=== PATIENT | male | born 2000 | race Caucasian/White ===

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

== ENCOUNTER 2019-01-24 09:00 | Outpatient (RCR) | payer BC ==
[2019-01-02 15:59] LABS: BASO # 0.1 (0.0-0.2); BASO % 0.8 % (0.0-2.0); EOS # 0.5 (0.0-0.7); EOS % 7.8 % (0-4.0); GRAN # 3.7 (1.4-6.5); HEMATOCRIT 47.3 % (36.0-47.0); HEMOGLOBIN 16.4 g/dl (12.5-16.1); LYMPH # 1.3 (1.2-3.4); LYMPH % 20.8 % (20.0-51.0); MEAN CELL VOLUME 89 fl (80.0-95.0); MEAN CORPUSCULAR HEMOGLOBIN 31 pg (26.0-32.0); MEAN CORPUSCULAR HGB CONC 35 g/dl (33.0-37.0); MONO # 0.6 (0.1-0.6); MONO % 10.3 % (1.7-9.3); PLATELET COUNT 185 K/mm3 (130-400); RED BLOOD COUNT 5.31 M/mm3 (4.20-5.60); REDCELL DISTRIBUTION WIDTH-CV 11.9 % (11.5-14.5)
[2019-01-02 16:17] VITALS: BP 102/56; PULSE 76; TEMP 98.2
[2019-01-02 16:17] LABS: ALANINE AMINOTRANSFERASE 25 U/L (21-72); ALBUMIN 4.4 gm/dL (3.5-5.0); ALKALINE PHOSPHATASE 64 U/L (50-136); ANION GAP 9 mmol/L (7-16); AST,SGOT 36 U/L (15-37); BILIRUBIN,TOTAL 0.8 mg/dL (0.0-1.0); BLOOD UREA NITROGEN 14 mg/dL (9-20); CALCIUM 9.1 mg/dL (8.4-10.2); CARBON DIOXIDE 27 mmol/L (22-30); CHLORIDE 102 mmol/L (98-107); CREATININE, serum 1.11 (0.66-1.25); GLUCOSE 96 mg/dL (74-106); LACTATE DEHYDROGENASE 470 U/L (313-618); POTASSIUM 4.1 mmol/L (3.4-5.0); SODIUM 138 mmol/L (137-145); TOTAL PROTEIN 6.8 gm/dL (6.4-8.2)
[2019-01-02 16:22] LABS: ERYTHROCYTE SEDIMENTATION RATE 1 mm/hr (0-15)
[2019-01-02 16:27] LABS: C-REACTIVE PROTEIN < 0.5 mg/dL (0.0-0.9)
[2019-01-02 16:50] VITALS: BP 102/56; PULSE 77; TEMP 97.9
[~2019-01-24] VITALS: Ht 175.3 cm; Wt 82.5 kg
[2019-01-24 09:15] VITALS: BP 102/55; PULSE 77; TEMP 97.5
[2019-01-24 09:27] LABS: BASO % 0.7 % (0.0-2.0); EOS # 0.3 (0.0-0.7); EOS % 7.6 % (0-4.0); GRAN % 49.6 % (42.2-75.2); HEMOGLOBIN 16.6 g/dl (12.5-16.1); LYMPH # 1.2 (1.2-3.4); LYMPH % 29.2 % (20.0-51.0); MEAN CELL VOLUME 89 fl (80.0-95.0); MEAN CORPUSCULAR HEMOGLOBIN 31 pg (26.0-32.0); MEAN CORPUSCULAR HGB CONC 35 g/dl (33.0-37.0); MEAN PLATELET VOLUME 9.7 fl (7.4-10.4); MONO # 0.5 (0.1-0.6); MONO % 12.7 % (1.7-9.3); PLATELET COUNT 178 K/mm3 (130-400); REDCELL DISTRIBUTION WIDTH-CV 12.1 % (11.5-14.5)
[2019-01-24 09:50] LABS: ALANINE AMINOTRANSFERASE 30 U/L (21-72); ALBUMIN 4.2 gm/dL (3.5-5.0); ALKALINE PHOSPHATASE 70 U/L (50-136); ANION GAP 8 mmol/L (7-16); AST,SGOT 37 U/L (15-37); BILIRUBIN,TOTAL 0.7 mg/dL (0.0-1.0); BLOOD UREA NITROGEN 12 mg/dL (9-20); CARBON DIOXIDE 26 mmol/L (22-30); CHLORIDE 105 mmol/L (98-107); CREATININE, serum 0.83 (0.66-1.25); GLUCOSE 100 mg/dL (74-106); LACTATE DEHYDROGENASE 444 U/L (313-618); POTASSIUM 3.8 mmol/L (3.4-5.0); SODIUM 140 mmol/L (137-145); TOTAL PROTEIN 6.5 gm/dL (6.4-8.2)
[2019-01-24 09:51] LABS: C-REACTIVE PROTEIN < 0.5 mg/dL (0.0-0.9); ERYTHROCYTE SEDIMENTATION RATE 1 mm/hr (0-15)
[2019-01-24 10:20] VITALS: BP 100/53; PULSE 73; TEMP 97.3
== END 2019-01-24 11:11 | disposition home or self-care (01) ==
LOC: EUO 09:00
PROVIDERS: Pediatrics Pediatric Rheumatology
DX: M08.20 Juvenile rheumatoid arthritis with systemic onset, unspecified site (principal); Z79.899 Other long term (current) drug therapy
CPT/HCPCS: J2920

== ENCOUNTER 2019-06-13 15:00 | Outpatient (RCR) | payer BC ==
[2019-05-23 11:59] LABS: BASO % 0.6 % (0.0-2.0); EOS # 0.1 (0.0-0.7); EOS % 2.3 % (0-4.0); GRAN # 3.8 (1.4-6.5); GRAN % 72.3 % (42.2-75.2); HEMATOCRIT 47.7 % (36.0-47.0); HEMOGLOBIN 16.6 g/dl (12.5-16.1); LYMPH # 0.8 (1.2-3.4); LYMPH % 15.3 % (20.0-51.0); MEAN CELL VOLUME 86 fl (80.0-95.0); MEAN CORPUSCULAR HEMOGLOBIN 30 pg (26.0-32.0); MEAN CORPUSCULAR HGB CONC 35 g/dl (33.0-37.0); MEAN PLATELET VOLUME 9.5 fl (7.4-10.4); MONO # 0.5 (0.1-0.6); MONO % 9.1 % (1.7-9.3); PLATELET COUNT 170 K/mm3 (130-400); RED BLOOD COUNT 5.53 M/mm3 (4.20-5.60); REDCELL DISTRIBUTION WIDTH-CV 11.8 % (11.5-14.5)
[2019-05-23 12:12] LABS: ALANINE AMINOTRANSFERASE 25 U/L (4-49); ALBUMIN 4.8 gm/dL (3.5-5.0); ALKALINE PHOSPHATASE 58 U/L (50-136); ANION GAP 7 mmol/L (7-16); AST,SGOT 27 U/L (15-37); BILIRUBIN,TOTAL 1.2 mg/dL (0.0-1.0); BLOOD UREA NITROGEN 14 mg/dL (9-20); CALCIUM 9.8 mg/dL (8.4-10.2); CARBON DIOXIDE 31 mmol/L (22-30); CHLORIDE 98 mmol/L (98-107); CREATININE, serum 0.96 (0.66-1.25); GLUCOSE 89 mg/dL (74-106); LACTATE DEHYDROGENASE 397 U/L (313-618); POTASSIUM 4.3 mmol/L (3.4-5.0); SODIUM 135 mmol/L (137-145); TOTAL PROTEIN 7.5 gm/dL (6.4-8.2)
[2019-05-23 12:13] LABS: C-REACTIVE PROTEIN < 0.5 mg/dL (0.0-0.9)
[2019-05-23 12:18] LABS: ERYTHROCYTE SEDIMENTATION RATE 1 mm/hr (0-15)
[2019-05-23 12:30] VITALS: BP 107/59; PULSE 77; PULSE 78; TEMP 97.5
[2019-05-23 12:34] VITALS: BP 105/49; PULSE 73
[2019-05-23 12:45] VITALS: BP 103/52; PULSE 73; TEMP 97.4
[2019-05-23 13:45] VITALS: BP 110/56; PULSE 73; TEMP 97.8
[~2019-06-13] VITALS: Ht 175.3 cm; Wt 79.7 kg
[2019-06-13 15:46] LABS: ALANINE AMINOTRANSFERASE 22 U/L (4-49); ALKALINE PHOSPHATASE 65 U/L (50-136); ANION GAP 9 mmol/L (7-16); AST,SGOT 29 U/L (15-37); BILIRUBIN,TOTAL 1.1 mg/dL (0.0-1.0); BLOOD UREA NITROGEN 13 mg/dL (9-20); CALCIUM 9.5 mg/dL (8.4-10.2); CARBON DIOXIDE 28 mmol/L (22-30); CHLORIDE 101 mmol/L (98-107); CREATININE, serum 0.85 (0.66-1.25); GLUCOSE 111 mg/dL (74-106); LACTATE DEHYDROGENASE 469 U/L (313-618); POTASSIUM 3.9 mmol/L (3.4-5.0); SODIUM 138 mmol/L (137-145); TOTAL PROTEIN 7.8 gm/dL (6.4-8.2)
[2019-06-13 15:48] LABS: C-REACTIVE PROTEIN < 0.5 mg/dL (0.0-0.9)
[2019-06-13 15:52] VITALS: BP 118/56; PULSE 87; TEMP 98.8
[2019-06-13 15:53] LABS: BASO % 0.5 % (0.0-2.0); EOS # 0.1 (0.0-0.7); EOS % 2.1 % (0-4.0); GRAN # 3.7 (1.4-6.5); GRAN % 65.7 % (42.2-75.2); HEMATOCRIT 48.1 % (36.0-47.0); LYMPH # 1.3 (1.2-3.4); LYMPH % 22.2 % (20.0-51.0); MEAN CELL VOLUME 85 fl (80.0-95.0); MEAN CORPUSCULAR HEMOGLOBIN 30 pg (26.0-32.0); MEAN CORPUSCULAR HGB CONC 35 g/dl (33.0-37.0); MEAN PLATELET VOLUME 9.9 fl (7.4-10.4); MONO # 0.5 (0.1-0.6); MONO % 9.3 % (1.7-9.3); PLATELET COUNT 199 K/mm3 (130-400); RED BLOOD COUNT 5.63 M/mm3 (4.20-5.60); REDCELL DISTRIBUTION WIDTH-CV 11.9 % (11.5-14.5)
[2019-06-13 16:11] LABS: ERYTHROCYTE SEDIMENTATION RATE 2 mm/hr (0-15)
[2019-06-13 16:30] VITALS: BP 96/44; PULSE 72; TEMP 98.2
[2019-06-13 17:00] VITALS: BP 105/49; PULSE 78; TEMP 98.4
== END 2019-07-10 18:33 | disposition home or self-care (01) ==
LOC: EUO 15:00
PROVIDERS: Pediatrics Pediatric Rheumatology
DX: M08.20 Juvenile rheumatoid arthritis with systemic onset, unspecified site (principal); Z79.899 Other long term (current) drug therapy
CPT/HCPCS: J2920

== ENCOUNTER 2019-07-11 15:45 | Outpatient (CLI) | payer BC ==
[2019-07-11 15:30] VITALS: BP 109/72; PULSE 86; TEMP 98
[2019-07-11 16:11] LABS: BASO % 0.4 % (0.0-2.0); EOS # 0.1 (0.0-0.7); EOS % 1.8 % (0-4.0); GRAN # 4.6 (1.4-6.5); GRAN % 67.9 % (42.2-75.2); HEMATOCRIT 44.4 % (36.0-47.0); HEMOGLOBIN 15.6 g/dl (12.5-16.1); LYMPH # 1.4 (1.2-3.4); LYMPH % 19.9 % (20.0-51.0); MEAN CELL VOLUME 86 fl (80.0-95.0); MEAN CORPUSCULAR HEMOGLOBIN 30 pg (26.0-32.0); MEAN CORPUSCULAR HGB CONC 35 g/dl (33.0-37.0); MEAN PLATELET VOLUME 9.7 fl (7.4-10.4); MONO # 0.7 (0.1-0.6); MONO % 9.7 % (1.7-9.3); PLATELET COUNT 191 K/mm3 (130-400); RED BLOOD COUNT 5.15 M/mm3 (4.20-5.60); REDCELL DISTRIBUTION WIDTH-CV 11.9 % (11.5-14.5)
[2019-07-11 16:42] LABS: ERYTHROCYTE SEDIMENTATION RATE 1 mm/hr (0-15)
[2019-07-11 17:00] LABS: ALANINE AMINOTRANSFERASE 20 U/L (4-49); ALBUMIN 4.5 gm/dL (3.5-5.0); ALKALINE PHOSPHATASE 65 U/L (50-136); ANION GAP 9 mmol/L (7-16); AST,SGOT 29 U/L (15-37); BILIRUBIN,TOTAL 1.2 mg/dL (0.0-1.0); BLOOD UREA NITROGEN 16 mg/dL (9-20); CALCIUM 9.3 mg/dL (8.4-10.2); CARBON DIOXIDE 25 mmol/L (22-30); CHLORIDE 101 mmol/L (98-107); CREATININE, serum 0.95 (0.66-1.25); GLUCOSE 115 mg/dL (74-106); LACTATE DEHYDROGENASE 435 U/L (313-618); SODIUM 135 mmol/L (137-145); TOTAL PROTEIN 7.2 gm/dL (6.4-8.2)
[2019-07-11 17:28] LABS: C-REACTIVE PROTEIN < 0.5 mg/dL (0.0-0.9)
== END 2019-07-11 17:30 | disposition home or self-care (01) ==
LOC: EUO 15:45
PROVIDERS: Pediatrics Pediatric Rheumatology
DX: Z79.899 Other long term (current) drug therapy (principal)
CPT/HCPCS: J2920

== ENCOUNTER 2019-08-08 15:20 | Outpatient (CLI) | payer BC ==
[~2019-08-08] VITALS: Ht 175.3 cm; Wt 79.6 kg
[2019-08-08 15:49] LABS: BASO % 0.5 % (0.0-2.0); EOS # 0.3 (0.0-0.7); EOS % 5.1 % (0-4.0); GRAN # 3.4 (1.4-6.5); GRAN % 62.1 % (42.2-75.2); HEMATOCRIT 46.9 % (36.0-47.0); HEMOGLOBIN 16.3 g/dl (12.5-16.1); LYMPH # 1.2 (1.2-3.4); LYMPH % 22.1 % (20.0-51.0); MEAN CELL VOLUME 88 fl (80.0-95.0); MEAN CORPUSCULAR HEMOGLOBIN 31 pg (26.0-32.0); MEAN CORPUSCULAR HGB CONC 35 g/dl (33.0-37.0); MEAN PLATELET VOLUME 9.8 fl (7.4-10.4); MONO # 0.6 (0.1-0.6); PLATELET COUNT 184 K/mm3 (130-400); RED BLOOD COUNT 5.35 M/mm3 (4.20-5.60); REDCELL DISTRIBUTION WIDTH-CV 11.8 % (11.5-14.5)
[2019-08-08 16:08] LABS: ALANINE AMINOTRANSFERASE 23 U/L (4-49); ALBUMIN 4.6 gm/dL (3.5-5.0); ALKALINE PHOSPHATASE 70 U/L (50-136); ANION GAP 9 mmol/L (7-16); AST,SGOT 29 U/L (15-37); BILIRUBIN,TOTAL 0.6 mg/dL (0.0-1.0); BLOOD UREA NITROGEN 14 mg/dL (9-20); CALCIUM 9.2 mg/dL (8.4-10.2); CARBON DIOXIDE 28 mmol/L (22-30); CHLORIDE 98 mmol/L (98-107); CREATININE, serum 1.07 (0.66-1.25); GLUCOSE 107 mg/dL (74-106); LACTATE DEHYDROGENASE 395 U/L (313-618); SODIUM 134 mmol/L (137-145); TOTAL PROTEIN 7.3 gm/dL (6.4-8.2)
[2019-08-08 16:13] LABS: C-REACTIVE PROTEIN < 0.5 mg/dL (0.0-0.9)
[2019-08-08 16:16] LABS: ERYTHROCYTE SEDIMENTATION RATE 1 mm/hr (0-15)
[2019-08-08 16:24] VITALS: BP 111/73; PULSE 90; TEMP 98
== END 2019-09-05 10:00 | disposition home or self-care (01) ==
LOC: EUO 15:20
PROVIDERS: Pediatrics Pediatric Rheumatology
DX: Z79.899 Other long term (current) drug therapy (principal)
CPT/HCPCS: J2920

== ENCOUNTER 2019-09-06 14:09 | Outpatient (CLI) | payer BC ==
[2019-09-06 14:39] VITALS: BP 116/61; PULSE 91; TEMP 98.2
[2019-09-06 14:51] LABS: BASO % 0.9 % (0.0-2.0); EOS # 0.2 (0.0-0.7); GRAN # 2.7 (1.4-6.5); GRAN % 56.8 % (42.2-75.2); HEMATOCRIT 48.9 % (36.0-47.0); HEMOGLOBIN 17.2 g/dl (12.5-16.1); LYMPH # 1.3 (1.2-3.4); MEAN CELL VOLUME 86 fl (80.0-95.0); MEAN CORPUSCULAR HEMOGLOBIN 30 pg (26.0-32.0); MEAN CORPUSCULAR HGB CONC 35 g/dl (33.0-37.0); MEAN PLATELET VOLUME 9.9 fl (7.4-10.4); MONO # 0.5 (0.1-0.6); MONO % 11.1 % (1.7-9.3); PLATELET COUNT 184 K/mm3 (130-400); RED BLOOD COUNT 5.72 M/mm3 (4.20-5.60); REDCELL DISTRIBUTION WIDTH-CV 11.7 % (11.5-14.5)
[2019-09-06 14:58] LABS: ALANINE AMINOTRANSFERASE 24 U/L (4-49); ALBUMIN 4.7 gm/dL (3.5-5.0); ALKALINE PHOSPHATASE 59 U/L (50-136); ANION GAP 9 mmol/L (7-16); AST,SGOT 29 U/L (15-37); BILIRUBIN,TOTAL 1.1 mg/dL (0.0-1.0); BLOOD UREA NITROGEN 15 mg/dL (9-20); CALCIUM 9.7 mg/dL (8.4-10.2); CARBON DIOXIDE 28 mmol/L (22-30); CHLORIDE 101 mmol/L (98-107); CREATININE, serum 0.96 (0.66-1.25); GLUCOSE 87 mg/dL (74-106); LACTATE DEHYDROGENASE 386 U/L (313-618); SODIUM 137 mmol/L (137-145); TOTAL PROTEIN 7.6 gm/dL (6.4-8.2)
[2019-09-06 15:07] LABS: C-REACTIVE PROTEIN < 0.5 mg/dL (0.0-0.9)
[2019-09-06 15:13] LABS: ERYTHROCYTE SEDIMENTATION RATE 1 mm/hr (0-15)
[2019-09-06 15:44] VITALS: BP 99/62; PULSE 74
== END 2019-09-06 16:05 | disposition home or self-care (01) ==
LOC: EUO 14:09
PROVIDERS: Pediatrics Pediatric Rheumatology
DX: M08.20 Juvenile rheumatoid arthritis with systemic onset, unspecified site (principal); Z79.899 Other long term (current) drug therapy
CPT/HCPCS: J2920

== ENCOUNTER 2019-10-03 14:58 | Outpatient (CLI) | payer BC ==
[2019-10-03 15:26] VITALS: BP 119/70; PULSE 86; TEMP 98.6
[2019-10-03 15:47] LABS: BASO # 0.1 (0.0-0.2); BASO % 1.2 % (0.0-2.0); EOS # 0.3 (0.0-0.7); EOS % 6.6 % (0-4.0); GRAN % 47.4 % (42.2-75.2); HEMATOCRIT 44.4 % (36.0-47.0); HEMOGLOBIN 15.9 g/dl (12.5-16.1); LYMPH # 1.5 (1.2-3.4); MEAN CELL VOLUME 85 fl (80.0-95.0); MEAN CORPUSCULAR HEMOGLOBIN 30 pg (26.0-32.0); MEAN CORPUSCULAR HGB CONC 36 g/dl (33.0-37.0); MEAN PLATELET VOLUME 9.4 fl (7.4-10.4); MONO # 0.4 (0.1-0.6); MONO % 9.6 % (1.7-9.3); PLATELET COUNT 187 K/mm3 (130-400); RED BLOOD COUNT 5.24 M/mm3 (4.20-5.60); REDCELL DISTRIBUTION WIDTH-CV 11.7 % (11.5-14.5)
[2019-10-03 16:03] LABS: ALANINE AMINOTRANSFERASE 19 U/L (4-49); ALBUMIN 4.6 gm/dL (3.5-5.0); ALKALINE PHOSPHATASE 65 U/L (50-136); ANION GAP 9 mmol/L (7-16); AST,SGOT 34 U/L (15-37); BLOOD UREA NITROGEN 12 mg/dL (9-20); CALCIUM 9.4 mg/dL (8.4-10.2); CARBON DIOXIDE 25 mmol/L (22-30); CHLORIDE 103 mmol/L (98-107); CREATININE, serum 0.89 (0.66-1.25); GLUCOSE 93 mg/dL (74-106); LACTATE DEHYDROGENASE 452 U/L (313-618); POTASSIUM 3.9 mmol/L (3.4-5.0); SODIUM 136 mmol/L (137-145); TOTAL PROTEIN 7.2 gm/dL (6.4-8.2)
[2019-10-03 16:06] LABS: C-REACTIVE PROTEIN < 0.5 mg/dL (0.0-0.9)
[2019-10-03 16:57] LABS: ERYTHROCYTE SEDIMENTATION RATE 1 mm/hr (0-15)
[2019-10-03 17:10] VITALS: BP 103/53; PULSE 53; TEMP 97.7
[2019-10-03 17:30] VITALS: BP 105/59; PULSE 75; TEMP 98.3
== END 2019-10-03 18:25 | disposition home or self-care (01) ==
LOC: EUO 14:58
PROVIDERS: Pediatrics Pediatric Rheumatology
DX: M05.80 Other rheumatoid arthritis with rheumatoid factor of unspecified site (principal); Z79.899 Other long term (current) drug therapy
CPT/HCPCS: J2920

== ENCOUNTER 2019-10-31 15:34 | Outpatient (CLI) | payer BC ==
[~2019-10-31] VITALS: Ht 175.3 cm; Wt 77.6 kg
[2019-10-31 15:50] LABS: BASO % 0.7 % (0.0-2.0); EOS # 0.3 (0.0-0.7); EOS % 7.2 % (0-4.0); GRAN # 2.2 (1.4-6.5); HEMATOCRIT 43.9 % (36.0-47.0); HEMOGLOBIN 15.6 g/dl (12.5-16.1); LYMPH # 1.2 (1.2-3.4); LYMPH % 28.6 % (20.0-51.0); MEAN CELL VOLUME 85 fl (80.0-95.0); MEAN CORPUSCULAR HEMOGLOBIN 30 pg (26.0-32.0); MEAN CORPUSCULAR HGB CONC 36 g/dl (33.0-37.0); MEAN PLATELET VOLUME 9.7 fl (7.4-10.4); MONO # 0.5 (0.1-0.6); MONO % 11.5 % (1.7-9.3); PLATELET COUNT 211 K/mm3 (130-400); RED BLOOD COUNT 5.17 M/mm3 (4.20-5.60); REDCELL DISTRIBUTION WIDTH-CV 11.9 % (11.5-14.5)
[2019-10-31 16:02] LABS: ALANINE AMINOTRANSFERASE 18 U/L (4-49); ALBUMIN 4.6 gm/dL (3.5-5.0); ALKALINE PHOSPHATASE 63 U/L (50-136); ANION GAP 8 mmol/L (7-16); AST,SGOT 26 U/L (15-37); BLOOD UREA NITROGEN 15 mg/dL (9-20); CALCIUM 9.4 mg/dL (8.4-10.2); CARBON DIOXIDE 27 mmol/L (22-30); CHLORIDE 101 mmol/L (98-107); GLUCOSE 110 mg/dL (74-106); LACTATE DEHYDROGENASE 388 U/L (313-618); POTASSIUM 4.2 mmol/L (3.4-5.0); SODIUM 136 mmol/L (137-145); TOTAL PROTEIN 6.9 gm/dL (6.4-8.2)
[2019-10-31 16:03] LABS: C-REACTIVE PROTEIN < 0.5 mg/dL (0.0-0.9)
[2019-10-31 16:09] LABS: ERYTHROCYTE SEDIMENTATION RATE 2 mm/hr (0-15)
[2019-10-31 16:31] VITALS: BP 109/63; PULSE 76; TEMP 98.3
== END 2019-10-31 18:02 | disposition home or self-care (01) ==
LOC: EUO 15:34
PROVIDERS: Family Medicine
DX: Z79.899 Other long term (current) drug therapy (principal)
CPT/HCPCS: J2930

== ENCOUNTER 2019-11-28 15:14 | Outpatient (CLI) | payer BC ==
[~2019-11-28] VITALS: Ht 175.3 cm; Wt 78.1 kg
[2019-11-28 15:29] LABS: BASO % 0.6 % (0.0-2.0); EOS # 0.3 (0.0-0.7); EOS % 6.6 % (0-4.0); GRAN # 2.9 (1.4-6.5); GRAN % 56.1 % (42.2-75.2); HEMATOCRIT 48.2 % (36.0-47.0); HEMOGLOBIN 16.8 g/dl (12.5-16.1); LYMPH # 1.4 (1.2-3.4); LYMPH % 26.4 % (20.0-51.0); MEAN CELL VOLUME 86 fl (80.0-95.0); MEAN CORPUSCULAR HEMOGLOBIN 30 pg (26.0-32.0); MEAN CORPUSCULAR HGB CONC 35 g/dl (33.0-37.0); MEAN PLATELET VOLUME 9.5 fl (7.4-10.4); MONO # 0.5 (0.1-0.6); MONO % 10.1 % (1.7-9.3); PLATELET COUNT 189 K/mm3 (130-400); RED BLOOD COUNT 5.59 M/mm3 (4.20-5.60); REDCELL DISTRIBUTION WIDTH-CV 11.9 % (11.5-14.5)
[2019-11-28 15:45] LABS: ALANINE AMINOTRANSFERASE 30 U/L (4-49); ALBUMIN 4.9 gm/dL (3.5-5.0); ALKALINE PHOSPHATASE 62 U/L (50-136); ANION GAP 10 mmol/L (7-16); AST,SGOT 41 U/L (15-37); BLOOD UREA NITROGEN 17 mg/dL (9-20); CALCIUM 9.8 mg/dL (8.4-10.2); CARBON DIOXIDE 26 mmol/L (22-30); CHLORIDE 101 mmol/L (98-107); CREATININE, serum 1.31 (0.66-1.25); GLUCOSE 98 mg/dL (74-106); LACTATE DEHYDROGENASE 500 U/L (313-618); SODIUM 137 mmol/L (137-145); TOTAL PROTEIN 7.5 gm/dL (6.4-8.2)
[2019-11-28 15:50] LABS: C-REACTIVE PROTEIN < 0.5 mg/dL (0.0-0.9)
[2019-11-28 15:57] VITALS: BP 105/55; PULSE 78; TEMP 98.4
[2019-11-28 16:06] LABS: ERYTHROCYTE SEDIMENTATION RATE 1 mm/hr (0-15)
[2019-11-28 16:20] VITALS: BP 112/70; PULSE 80
[2019-11-28 16:47] VITALS: BP 107/59; PULSE 74
== END 2019-11-28 16:48 | disposition home or self-care (01) ==
LOC: EUO 15:14
PROVIDERS: Family Medicine
DX: M08.20 Juvenile rheumatoid arthritis with systemic onset, unspecified site (principal)
CPT/HCPCS: J2920

== ENCOUNTER 2019-12-26 14:59 | Outpatient (CLI) | payer BC ==
[2019-12-26 15:43] LABS: BASO % 0.6 % (0.0-2.0); EOS # 0.3 (0.0-0.7); EOS % 5.2 % (0-4.0); GRAN % 60.1 % (42.2-75.2); HEMATOCRIT 47.4 % (36.0-47.0); HEMOGLOBIN 16.4 g/dl (12.5-16.1); LYMPH # 1.2 (1.2-3.4); LYMPH % 23.1 % (20.0-51.0); MEAN CELL VOLUME 88 fl (80.0-95.0); MEAN CORPUSCULAR HEMOGLOBIN 30 pg (26.0-32.0); MEAN CORPUSCULAR HGB CONC 35 g/dl (33.0-37.0); MEAN PLATELET VOLUME 9.8 fl (7.4-10.4); MONO # 0.5 (0.1-0.6); MONO % 10.8 % (1.7-9.3); PLATELET COUNT 212 K/mm3 (130-400); RED BLOOD COUNT 5.42 M/mm3 (4.20-5.60); REDCELL DISTRIBUTION WIDTH-CV 12.2 % (11.5-14.5)
[2019-12-26 15:56] LABS: ALANINE AMINOTRANSFERASE 22 U/L (4-49); ALBUMIN 4.8 gm/dL (3.5-5.0); ALKALINE PHOSPHATASE 69 U/L (50-136); ANION GAP 8 mmol/L (7-16); AST,SGOT 30 U/L (15-37); BILIRUBIN,TOTAL 0.8 mg/dL (0.0-1.0); BLOOD UREA NITROGEN 16 mg/dL (9-20); CALCIUM 9.3 mg/dL (8.4-10.2); CARBON DIOXIDE 29 mmol/L (22-30); CHLORIDE 98 mmol/L (98-107); CREATININE, serum 0.99 (0.66-1.25); GLUCOSE 97 mg/dL (74-106); LACTATE DEHYDROGENASE 448 U/L (313-618); POTASSIUM 4.2 mmol/L (3.4-5.0); SODIUM 136 mmol/L (137-145); TOTAL PROTEIN 7.1 gm/dL (6.4-8.2)
[2019-12-26 15:59] VITALS: BP 102/60; PULSE 74; TEMP 98.3
[2019-12-26 16:04] LABS: C-REACTIVE PROTEIN < 0.5 mg/dL (0.0-0.9)
[2019-12-26 17:00] VITALS: BP 114/72; PULSE 77; TEMP 98.4
[2019-12-26 17:15] LABS: ERYTHROCYTE SEDIMENTATION RATE 1 mm/hr (0-15)
== END 2019-12-26 19:14 | disposition home or self-care (01) ==
LOC: EUO 14:59
PROVIDERS: Family Medicine
DX: M08.20 Juvenile rheumatoid arthritis with systemic onset, unspecified site (principal); Z79.899 Other long term (current) drug therapy
CPT/HCPCS: J2920

== ENCOUNTER 2020-01-23 15:03 | Outpatient (CLI) | payer BC ==
[~2020-01-23] VITALS: Ht 175.3 cm; Wt 80.9 kg
[2020-01-23 15:39] LABS: BASO % 0.4 % (0.0-2.0); EOS # 0.2 (0.0-0.7); EOS % 4.1 % (0-4.0); GRAN # 3.6 (1.4-6.5); GRAN % 64.6 % (42.2-75.2); HEMATOCRIT 48.7 % (36.0-47.0); HEMOGLOBIN 16.9 g/dl (12.5-16.1); LYMPH # 1.2 (1.2-3.4); LYMPH % 20.8 % (20.0-51.0); MEAN CELL VOLUME 87 fl (80.0-95.0); MEAN CORPUSCULAR HEMOGLOBIN 30 pg (26.0-32.0); MEAN CORPUSCULAR HGB CONC 35 g/dl (33.0-37.0); MEAN PLATELET VOLUME 9.8 fl (7.4-10.4); MONO # 0.6 (0.1-0.6); MONO % 9.9 % (1.7-9.3); PLATELET COUNT 201 K/mm3 (130-400); REDCELL DISTRIBUTION WIDTH-CV 11.8 % (11.5-14.5)
[2020-01-23 15:50] VITALS: BP 130/76; PULSE 78; TEMP 98.2
[2020-01-23 15:57] LABS: ERYTHROCYTE SEDIMENTATION RATE 1 mm/hr (0-15)
[2020-01-23 16:03] LABS: ALANINE AMINOTRANSFERASE 27 U/L (4-49); ALBUMIN 4.6 gm/dL (3.5-5.0); ALKALINE PHOSPHATASE 60 U/L (50-136); ANION GAP 8 mmol/L (7-16); AST,SGOT 32 U/L (15-37); BILIRUBIN,TOTAL 0.8 mg/dL (0.0-1.0); BLOOD UREA NITROGEN 13 mg/dL (9-20); CALCIUM 9.3 mg/dL (8.4-10.2); CARBON DIOXIDE 29 mmol/L (22-30); CHLORIDE 102 mmol/L (98-107); CREATININE, serum 0.87 (0.66-1.25); GLUCOSE 102 mg/dL (74-106); LACTATE DEHYDROGENASE 415 U/L (313-618); POTASSIUM 3.9 mmol/L (3.4-5.0); SODIUM 139 mmol/L (137-145)
[2020-01-23 16:08] LABS: C-REACTIVE PROTEIN < 0.5 mg/dL (0.0-0.9)
[2020-01-23 16:37] VITALS: BP 131/74; PULSE 72; TEMP 98.2
== END 2020-01-23 16:45 | disposition home or self-care (01) ==
LOC: EUO 15:03
PROVIDERS: Family Medicine
DX: M08.20 Juvenile rheumatoid arthritis with systemic onset, unspecified site (principal)
CPT/HCPCS: J2930

== ENCOUNTER 2020-02-21 14:58 | Outpatient (CLI) | payer BC ==
[2020-02-21 15:33] LABS: BASO % 0.6 % (0.0-2.0); EOS # 0.2 (0.0-0.7); GRAN # 3.3 (1.4-6.5); GRAN % 65.2 % (42.2-75.2); HEMATOCRIT 46.3 % (42.0-52.0); HEMOGLOBIN 16.4 g/dl (13.5-18.0); LYMPH # 1.1 (1.2-3.4); LYMPH % 20.9 % (20.0-51.0); MEAN CELL VOLUME 85 fl (80.0-100.0); MEAN CORPUSCULAR HEMOGLOBIN 30 pg (27.0-31.0); MEAN CORPUSCULAR HGB CONC 35 g/dl (33.0-37.0); MEAN PLATELET VOLUME 9.3 fl (7.4-10.4); MONO # 0.5 (0.1-0.6); MONO % 9.1 % (1.7-9.3); PLATELET COUNT 203 K/mm3 (130-400); RED BLOOD COUNT 5.43 M/mm3 (4.20-5.60); REDCELL DISTRIBUTION WIDTH-CV 11.9 % (11.5-14.5)
[2020-02-21 15:44] LABS: ALBUMIN 4.7 gm/dL (3.5-5.0); BILIRUBIN,TOTAL 0.8 mg/dL (0.0-1.0); CALCIUM 9.3 mg/dL (8.4-10.2); CREATININE, serum 0.9 (0.66-1.25); POTASSIUM 4.2 mmol/L (3.4-5.0); TOTAL PROTEIN 7.3 gm/dL (6.4-8.2)
[2020-02-21 16:09] VITALS: BP 104/68; PULSE 79; TEMP 98.6
== END 2020-02-21 19:05 | disposition home or self-care (01) ==
LOC: EUO 14:58
PROVIDERS: Family Medicine
DX: M08.20 Juvenile rheumatoid arthritis with systemic onset, unspecified site (principal)

== ENCOUNTER 2020-03-20 14:33 | Outpatient (CLI) | payer BC ==
[~2020-03-20] VITALS: Ht 175.3 cm; Wt 82.3 kg
[2020-03-20 15:09] LABS: BASO % 0.7 % (0.0-2.0); EOS # 0.2 (0.0-0.7); EOS % 5.5 % (0-4.0); GRAN # 2.3 (1.4-6.5); GRAN % 53.5 % (42.2-75.2); HEMATOCRIT 48.9 % (42.0-52.0); LYMPH # 1.3 (1.2-3.4); LYMPH % 28.5 % (20.0-51.0); MEAN CELL VOLUME 87 fl (80.0-100.0); MEAN CORPUSCULAR HEMOGLOBIN 30 pg (27.0-31.0); MEAN CORPUSCULAR HGB CONC 35 g/dl (33.0-37.0); MEAN PLATELET VOLUME 9.5 fl (7.4-10.4); MONO # 0.5 (0.1-0.6); MONO % 11.6 % (1.7-9.3); PLATELET COUNT 207 K/mm3 (130-400); RED BLOOD COUNT 5.64 M/mm3 (4.20-5.60); REDCELL DISTRIBUTION WIDTH-CV 11.9 % (11.5-14.5)
[2020-03-20 15:19] LABS: ALBUMIN 4.9 gm/dL (3.5-5.0); BILIRUBIN,TOTAL 1.2 mg/dL (0.0-1.0); CALCIUM 9.6 mg/dL (8.4-10.2); CREATININE, serum 0.99 (0.66-1.25); POTASSIUM 3.8 mmol/L (3.4-5.0); TOTAL PROTEIN 7.5 gm/dL (6.4-8.2)
[2020-03-20 15:35] VITALS: BP 109/63; PULSE 68; TEMP 97.6
== END 2020-03-20 17:26 | disposition home or self-care (01) ==
LOC: EUO 14:33
PROVIDERS: Family Medicine
DX: M08.20 Juvenile rheumatoid arthritis with systemic onset, unspecified site (principal)

== ENCOUNTER 2020-04-17 14:57 | Outpatient (CLI) | payer BC ==
[~2020-04-17] VITALS: Ht 175.3 cm; Wt 80.3 kg
[2020-04-17 15:20] LABS: BASO % 0.6 % (0.0-2.0); EOS # 0.2 (0.0-0.7); EOS % 3.8 % (0-4.0); GRAN # 3.2 (1.4-6.5); GRAN % 60.9 % (42.2-75.2); HEMATOCRIT 47.5 % (42.0-52.0); HEMOGLOBIN 16.7 g/dl (13.5-18.0); LYMPH # 1.2 (1.2-3.4); LYMPH % 23.6 % (20.0-51.0); MEAN CELL VOLUME 86 fl (80.0-100.0); MEAN CORPUSCULAR HEMOGLOBIN 30 pg (27.0-31.0); MEAN CORPUSCULAR HGB CONC 35 g/dl (33.0-37.0); MEAN PLATELET VOLUME 9.7 fl (7.4-10.4); MONO # 0.6 (0.1-0.6); MONO % 10.9 % (1.7-9.3); PLATELET COUNT 213 K/mm3 (130-400); RED BLOOD COUNT 5.55 M/mm3 (4.20-5.60); REDCELL DISTRIBUTION WIDTH-CV 11.9 % (11.5-14.5)
[2020-04-17 15:31] LABS: CREATININE, serum 0.98 (0.66-1.25); POTASSIUM 4.1 mmol/L (3.4-5.0); TOTAL PROTEIN 7.8 gm/dL (6.4-8.2)
[2020-04-17 15:48] VITALS: BP 112/65; PULSE 97; TEMP 98
[2020-04-17 16:15] VITALS: BP 108/70; PULSE 68
[2020-04-17 16:30] VITALS: BP 100/65; PULSE 71
[2020-04-17 16:45] VITALS: BP 109/69; PULSE 69
== END 2020-04-17 17:43 | disposition home or self-care (01) ==
LOC: EUO
PROVIDERS: Family Medicine
DX: M08.20 Juvenile rheumatoid arthritis with systemic onset, unspecified site (principal); Z79.899 Other long term (current) drug therapy

== ENCOUNTER 2020-05-15 15:03 | Outpatient (CLI) | payer BC ==
[~2020-05-15] VITALS: Ht 175.3 cm; Wt 79.7 kg
[2020-05-15 15:42] LABS: BASO % 0.5 % (0.0-2.0); EOS # 0.2 (0.0-0.7); EOS % 4.2 % (0-4.0); GRAN # 3.3 (1.4-6.5); GRAN % 60.8 % (42.2-75.2); HEMATOCRIT 46.7 % (42.0-52.0); HEMOGLOBIN 16.1 g/dl (13.5-18.0); LYMPH # 1.4 (1.2-3.4); LYMPH % 24.6 % (20.0-51.0); MEAN CELL VOLUME 89 fl (80.0-100.0); MEAN CORPUSCULAR HEMOGLOBIN 31 pg (27.0-31.0); MEAN CORPUSCULAR HGB CONC 35 g/dl (33.0-37.0); MEAN PLATELET VOLUME 9.9 fl (7.4-10.4); MONO # 0.5 (0.1-0.6); MONO % 9.7 % (1.7-9.3); PLATELET COUNT 183 K/mm3 (130-400); RED BLOOD COUNT 5.26 M/mm3 (4.20-5.60); REDCELL DISTRIBUTION WIDTH-CV 12.1 % (11.5-14.5)
[2020-05-15 15:57] LABS: ALBUMIN 4.4 gm/dL (3.5-5.0); BILIRUBIN,TOTAL 0.7 mg/dL (0.0-1.0); CALCIUM 9.6 mg/dL (8.4-10.2); CREATININE, serum 0.98 (0.66-1.25); POTASSIUM 4.4 mmol/L (3.4-5.0)
[2020-05-15 15:58] VITALS: BP 116/71; PULSE 67; TEMP 98
--- NOTE | 2020-05-15 16:30 | NUR ---
Pt tolerates infusion without issue. IV DC'd with catheter intact prior to departing.
== END 2020-05-15 17:17 | disposition home or self-care (01) ==
LOC: EUO 15:03
PROVIDERS: Family Medicine
DX: M08.20 Juvenile rheumatoid arthritis with systemic onset, unspecified site (principal)

== ENCOUNTER 2020-06-12 15:06 | Outpatient (CLI) | payer BC ==
[~2020-06-12] VITALS: Ht 175.3 cm; Wt 79.9 kg
[2020-06-12 15:37] LABS: BASO % 0.6 % (0.0-2.0); EOS # 0.1 (0.0-0.7); GRAN % 64.6 % (42.2-75.2); HEMATOCRIT 45.6 % (42.0-52.0); MEAN CELL VOLUME 86 fl (80.0-100.0); MEAN CORPUSCULAR HEMOGLOBIN 30 pg (27.0-31.0); MEAN CORPUSCULAR HGB CONC 35 g/dl (33.0-37.0); MEAN PLATELET VOLUME 9.5 fl (7.4-10.4); MONO # 0.5 (0.1-0.6); MONO % 9.6 % (1.7-9.3); PLATELET COUNT 201 K/mm3 (130-400); RED BLOOD COUNT 5.29 M/mm3 (4.20-5.60); REDCELL DISTRIBUTION WIDTH-CV 11.9 % (11.5-14.5)
[2020-06-12 15:45] LABS: ALBUMIN 4.8 gm/dL (3.5-5.0); BILIRUBIN,TOTAL 0.4 mg/dL (0.0-1.0); CALCIUM 9.4 mg/dL (8.4-10.2); CREATININE, serum 0.86 (0.66-1.25); POTASSIUM 4.1 mmol/L (3.4-5.0); TOTAL PROTEIN 7.5 gm/dL (6.4-8.2)
[2020-06-12 16:00] VITALS: BP 144/74; PULSE 66; TEMP 98
[2020-06-12 16:45] VITALS: BP 108/80; PULSE 82
== END 2020-06-12 17:16 | disposition home or self-care (01) ==
LOC: EUO 15:06
PROVIDERS: Family Medicine
DX: M08.20 Juvenile rheumatoid arthritis with systemic onset, unspecified site (principal); Z79.899 Other long term (current) drug therapy

== ENCOUNTER 2020-07-15 14:08 | Outpatient (CLI) | payer BC ==
[~2020-07-15] VITALS: Ht 175.3 cm; Wt 80.0 kg
[2020-07-15 14:41] VITALS: BP 113/65; PULSE 82; TEMP 98.4
[2020-07-15 15:05] LABS: BASO % 0.5 % (0.0-2.0); EOS # 0.2 (0.0-0.7); EOS % 3.8 % (0-4.0); GRAN # 3.2 (1.4-6.5); GRAN % 57.6 % (42.2-75.2); HEMATOCRIT 44.2 % (42.0-52.0); HEMOGLOBIN 15.8 g/dl (13.5-18.0); LYMPH # 1.5 (1.2-3.4); LYMPH % 26.5 % (20.0-51.0); MEAN CELL VOLUME 86 fl (80.0-100.0); MEAN CORPUSCULAR HEMOGLOBIN 31 pg (27.0-31.0); MEAN CORPUSCULAR HGB CONC 36 g/dl (33.0-37.0); MEAN PLATELET VOLUME 9.7 fl (7.4-10.4); MONO # 0.6 (0.1-0.6); MONO % 11.2 % (1.7-9.3); PLATELET COUNT 187 K/mm3 (130-400); RED BLOOD COUNT 5.13 M/mm3 (4.20-5.60); REDCELL DISTRIBUTION WIDTH-CV 11.9 % (11.5-14.5)
[2020-07-15 15:06] LABS: ALBUMIN 4.3 gm/dL (3.5-5.0); CALCIUM 9.3 mg/dL (8.4-10.2); CREATININE, serum 0.87 (0.66-1.25); POTASSIUM 3.6 mmol/L (3.4-5.0); TOTAL PROTEIN 6.8 gm/dL (6.4-8.2)
== END 2020-07-15 17:28 | disposition home or self-care (01) ==
LOC: EUO 14:08
PROVIDERS: Family Medicine
DX: M08.20 Juvenile rheumatoid arthritis with systemic onset, unspecified site (principal)

== ENCOUNTER 2020-08-14 15:00 | Outpatient (CLI) | payer BC ==
[~2020-08-14] VITALS: Ht 175.3 cm; Wt 73.2 kg
[2020-08-14 15:30] VITALS: BP 108/67; PULSE 78; TEMP 98.2
[2020-08-14 15:35] LABS: BASO % 0.5 % (0.0-2.0); EOS # 0.2 (0.0-0.7); EOS % 3.8 % (0-4.0); GRAN # 3.7 (1.4-6.5); GRAN % 66.1 % (42.2-75.2); HEMOGLOBIN 15.7 g/dl (13.5-18.0); LYMPH # 1.2 (1.2-3.4); LYMPH % 20.8 % (20.0-51.0); MEAN CELL VOLUME 87 fl (80.0-100.0); MEAN CORPUSCULAR HEMOGLOBIN 30 pg (27.0-31.0); MEAN CORPUSCULAR HGB CONC 35 g/dl (33.0-37.0); MEAN PLATELET VOLUME 9.5 fl (7.4-10.4); MONO # 0.5 (0.1-0.6); MONO % 8.6 % (1.7-9.3); PLATELET COUNT 178 K/mm3 (130-400); REDCELL DISTRIBUTION WIDTH-CV 11.8 % (11.5-14.5)
[2020-08-14 15:47] LABS: ALBUMIN 4.1 gm/dL (3.5-5.0); CALCIUM 9.1 mg/dL (8.4-10.2); CREATININE, serum 0.85 (0.66-1.25); POTASSIUM 3.9 mmol/L (3.4-5.0); TOTAL PROTEIN 6.7 gm/dL (6.4-8.2)
== END 2020-08-14 16:45 | disposition home or self-care (01) ==
LOC: EUO 15:00
PROVIDERS: Family Medicine
DX: M08.20 Juvenile rheumatoid arthritis with systemic onset, unspecified site (principal); Z79.899 Other long term (current) drug therapy

== ENCOUNTER 2020-09-23 12:59 | Outpatient (CLI) | payer BC ==
[~2020-09-23] VITALS: Ht 175.3 cm; Wt 80.1 kg
[2020-09-23 13:34] LABS: BASO % 0.7 % (0.0-2.0); EOS # 0.1 (0.0-0.7); EOS % 2.4 % (0-4.0); GRAN % 65.9 % (42.2-75.2); HEMATOCRIT 43.5 % (42.0-52.0); HEMOGLOBIN 15.1 g/dl (13.5-18.0); LYMPH # 0.9 (1.2-3.4); LYMPH % 20.7 % (20.0-51.0); MEAN CELL VOLUME 88 fl (80.0-100.0); MEAN CORPUSCULAR HEMOGLOBIN 30 pg (27.0-31.0); MEAN CORPUSCULAR HGB CONC 35 g/dl (33.0-37.0); MEAN PLATELET VOLUME 9.7 fl (7.4-10.4); MONO # 0.5 (0.1-0.6); MONO % 9.9 % (1.7-9.3); PLATELET COUNT 177 K/mm3 (130-400); RED BLOOD COUNT 4.96 M/mm3 (4.20-5.60); REDCELL DISTRIBUTION WIDTH-CV 11.9 % (11.5-14.5)
[2020-09-23 13:41] LABS: ALBUMIN 4.3 gm/dL (3.5-5.0); BILIRUBIN,TOTAL 0.8 mg/dL (0.0-1.0); CREATININE, serum 0.95 (0.66-1.25); TOTAL PROTEIN 6.6 gm/dL (6.4-8.2)
[2020-09-23 13:50] VITALS: BP 95/66; PULSE 78; TEMP 98
[2020-09-23 14:45] VITALS: BP 100/67; PULSE 70
--- NOTE | 2020-09-23 16:10 | NUR ---
pt and decided to leave before discharge appts made by Doctor, reviewed again wound care with pt, took number will call for appts when finialzed in computer by phycian
== END 2020-09-23 15:30 | disposition home or self-care (01) ==
LOC: EUO 12:59
PROVIDERS: Family Medicine
DX: M08.20 Juvenile rheumatoid arthritis with systemic onset, unspecified site (principal)

== ENCOUNTER 2020-10-21 14:55 | Outpatient (CLI) | payer BC ==
[~2020-10-21] VITALS: Ht 175.3 cm; Wt 80.0 kg
[2020-10-21 15:32] LABS: HEMATOCRIT 43.8 % (42.0-52.0); HEMOGLOBIN 15.6 g/dl (13.5-18.0); MEAN CELL VOLUME 86 fl (80.0-100.0); MEAN CORPUSCULAR HEMOGLOBIN 31 pg (27.0-31.0); MEAN CORPUSCULAR HGB CONC 36 g/dl (33.0-37.0); MEAN PLATELET VOLUME 9.9 fl (7.4-10.4); PLATELET COUNT 182 K/mm3 (130-400); RED BLOOD COUNT 5.12 M/mm3 (4.20-5.60); REDCELL DISTRIBUTION WIDTH-CV 11.9 % (11.5-14.5)
[2020-10-21 15:43] LABS: ALBUMIN 4.6 gm/dL (3.5-5.0); BILIRUBIN,TOTAL 0.7 mg/dL (0.0-1.0); CALCIUM 9.2 mg/dL (8.4-10.2); CREATININE, serum 0.93 (0.66-1.25); TOTAL PROTEIN 6.9 gm/dL (6.4-8.2)
[2020-10-21 16:01] LABS: BAND 1 % (0-10); EOSINOPHIL 7 % (0-4); LYMPHOCYTE 19 % (20.0-51.0); NEUTROPHILS 65 % (42.0-75.2)
[2020-10-21 16:03] LABS: PLATELET ESTIMATE NORMAL (NORMAL)
[2020-10-21 16:09] VITALS: BP 106/51; PULSE 77; TEMP 97.5
== END 2020-10-21 17:20 | disposition home or self-care (01) ==
LOC: EUO 14:55
PROVIDERS: Family Medicine
DX: M08.20 Juvenile rheumatoid arthritis with systemic onset, unspecified site (principal)

== ENCOUNTER 2020-12-16 15:24 | Outpatient (CLI) | payer BC ==
[~2020-12-16] VITALS: Ht 175.3 cm; Wt 81.9 kg
[2020-12-16 16:14] VITALS: BP 113/57; PULSE 77; TEMP 98
[2020-12-16 16:18] LABS: BASO % 0.4 % (0.0-2.0); EOS # 0.3 K/mm3 (0.0-0.7); EOS % 3.5 % (0-4.0); GRAN # 5.2 K/mm3 (1.4-6.5); GRAN % 69.1 % (42.2-75.2); HEMATOCRIT 49.3 % (42.0-52.0); HEMOGLOBIN 16.8 g/dl (13.5-18.0); LYMPH # 1.4 K/mm3 (1.2-3.4); LYMPH % 18.2 % (20.0-51.0); MEAN CELL VOLUME 89 fl (80.0-100.0); MEAN CORPUSCULAR HEMOGLOBIN 30 pg (27.0-31.0); MEAN CORPUSCULAR HGB CONC 34 g/dl (33.0-37.0); MEAN PLATELET VOLUME 9.5 fl (7.4-10.4); MONO # 0.6 K/mm3 (0.1-0.6); MONO % 8.4 % (1.7-9.3); PLATELET COUNT 234 K/mm3 (130-400); RED BLOOD COUNT 5.56 M/mm3 (4.20-5.60); REDCELL DISTRIBUTION WIDTH-CV 12.1 % (11.5-14.5)
[2020-12-16 16:37] LABS: ALBUMIN 4.4 gm/dL (3.5-5.0); BILIRUBIN,TOTAL 0.6 mg/dL (0.2-1.2); CALCIUM 9.9 mg/dL (8.4-10.2); CREATININE, serum 1.07 mg/dL (0.72-1.25); POTASSIUM 4.2 mmol/L (3.5-4.5); TOTAL PROTEIN 7.5 gm/dL (6.2-8.1)
== END 2020-12-16 17:37 ==
LOC: EUO 15:24
PROVIDERS: Family Medicine
DX: M08.20 Juvenile rheumatoid arthritis with systemic onset, unspecified site (principal)

== ENCOUNTER 2021-01-13 14:59 | Outpatient (CLI) | payer BC ==
[~2021-01-13] VITALS: Ht 175.3 cm; Wt 82.0 kg
[2021-01-13 15:00] VITALS: BP 118/80; PULSE 86; TEMP 97.1
[2021-01-13 15:26] LABS: BASO % 0.5 % (0.0-2.0); EOS # 0.1 K/mm3 (0.0-0.7); EOS % 1.8 % (0-4.0); GRAN # 4.7 K/mm3 (1.4-6.5); GRAN % 71.9 % (42.2-75.2); HEMOGLOBIN 16.7 g/dl (13.5-18.0); LYMPH # 1.1 K/mm3 (1.2-3.4); LYMPH % 16.9 % (20.0-51.0); MEAN CELL VOLUME 85 fl (80.0-100.0); MEAN CORPUSCULAR HEMOGLOBIN 30 pg (27.0-31.0); MEAN CORPUSCULAR HGB CONC 36 g/dl (33.0-37.0); MEAN PLATELET VOLUME 9.9 fl (7.4-10.4); MONO # 0.6 K/mm3 (0.1-0.6); MONO % 8.7 % (1.7-9.3); PLATELET COUNT 198 K/mm3 (130-400); RED BLOOD COUNT 5.52 M/mm3 (4.20-5.60)
[2021-01-13 15:49] LABS: ALBUMIN 4.7 gm/dL (3.5-5.0); CALCIUM 9.3 mg/dL (8.4-10.2); CREATININE, serum 1.07 mg/dL (0.72-1.25); POTASSIUM 4.2 mmol/L (3.5-4.5)
== END 2021-01-13 16:15 | disposition home or self-care (01) ==
LOC: EUO 14:59
PROVIDERS: Family Medicine
DX: M08.20 Juvenile rheumatoid arthritis with systemic onset, unspecified site (principal)

== ENCOUNTER 2021-02-12 13:58 | Outpatient (CLI) | payer BC ==
[~2021-02-12] VITALS: Ht 175.3 cm; Wt 84.7 kg
[2021-02-12 14:23] LABS: BASO % 0.5 % (0.0-2.0); EOS # 0.1 K/mm3 (0.0-0.7); EOS % 2.1 % (0.0-4.0); GRAN # 4.3 K/mm3 (1.4-6.5); GRAN % 68.2 % (42.2-75.2); HEMATOCRIT 44.8 % (42.0-52.0); HEMOGLOBIN 15.9 g/dl (13.5-18.0); LYMPH # 1.3 K/mm3 (1.2-3.4); LYMPH % 20.1 % (20.0-51.0); MEAN CELL VOLUME 85 fl (80.0-100.0); MEAN CORPUSCULAR HEMOGLOBIN 30 pg (27-31); MEAN CORPUSCULAR HGB CONC 36 g/dl (33.0-37.0); MEAN PLATELET VOLUME 9.7 fl (7.4-10.4); MONO # 0.6 K/mm3 (0.1-0.6); MONO % 8.9 % (1.7-9.3); PLATELET COUNT 189 K/mm3 (130-400); REDCELL DISTRIBUTION WIDTH-CV 11.9 % (11.5-14.5)
[2021-02-12 14:42] LABS: ALBUMIN 4.6 gm/dL (3.5-5.0); BILIRUBIN,TOTAL 1.8 mg/dL (0.2-1.2); CALCIUM 9.1 mg/dL (8.4-10.2); CREATININE, serum 0.91 mg/dL (0.72-1.25); TOTAL PROTEIN 6.8 gm/dL (6.2-8.1)
[2021-02-12 14:43] VITALS: BP 104/53; PULSE 78; TEMP 97.1
== END 2021-02-12 16:00 | disposition home or self-care (01) ==
LOC: EUO 13:58
PROVIDERS: Family Medicine
DX: M08.20 Juvenile rheumatoid arthritis with systemic onset, unspecified site (principal)

== ENCOUNTER 2021-03-11 15:05 | Outpatient (CLI) | payer BC ==
[~2021-03-11] VITALS: Ht 175.3 cm; Wt 86.1 kg
[2021-03-11 15:22] LABS: BASO % 0.7 % (0.0-2.0); EOS # 0.1 K/mm3 (0.0-0.7); EOS % 1.9 % (0.0-4.0); GRAN # 3.8 K/mm3 (1.4-6.5); GRAN % 64.2 % (42.2-75.2); HEMOGLOBIN 16.5 g/dl (13.5-18.0); LYMPH # 1.4 K/mm3 (1.2-3.4); LYMPH % 24.3 % (20.0-51.0); MEAN CELL VOLUME 86 fl (80.0-100.0); MEAN CORPUSCULAR HEMOGLOBIN 30 pg (27-31); MEAN CORPUSCULAR HGB CONC 34 g/dl (33.0-37.0); MEAN PLATELET VOLUME 9.7 fl (7.4-10.4); MONO # 0.5 K/mm3 (0.1-0.6); MONO % 8.7 % (1.7-9.3); PLATELET COUNT 217 K/mm3 (130-400); RED BLOOD COUNT 5.59 M/mm3 (4.20-5.60); REDCELL DISTRIBUTION WIDTH-CV 11.9 % (11.5-14.5)
[2021-03-11 15:54] LABS: ALBUMIN 4.9 gm/dL (3.5-5.0); BILIRUBIN,TOTAL 1.1 mg/dL (0.2-1.2); CALCIUM 9.4 mg/dL (8.4-10.2); CREATININE, serum 1.05 mg/dL (0.72-1.25); POTASSIUM 4.5 mmol/L (3.5-4.5); TOTAL PROTEIN 7.2 gm/dL (6.2-8.1)
[2021-03-11 17:38] VITALS: BP 116/62; PULSE 88; TEMP 98.2
== END 2021-03-11 17:39 | disposition home or self-care (01) ==
LOC: EUO 15:05
PROVIDERS: Family Medicine
DX: M08.20 Juvenile rheumatoid arthritis with systemic onset, unspecified site (principal)

== ENCOUNTER 2021-04-08 14:56 | Outpatient (CLI) | payer BC ==
[~2021-04-08] VITALS: Ht 175.3 cm; Wt 81.4 kg
[2021-04-08 15:29] LABS: BASO % 0.6 % (0.0-2.0); EOS # 0.1 K/mm3 (0.0-0.7); EOS % 2.5 % (0.0-4.0); GRAN # 3.1 K/mm3 (1.4-6.5); GRAN % 63.8 % (42.2-75.2); HEMATOCRIT 46.5 % (42.0-52.0); HEMOGLOBIN 16.2 g/dl (13.5-18.0); LYMPH # 1.1 K/mm3 (1.2-3.4); MEAN CELL VOLUME 86 fl (80.0-100.0); MEAN CORPUSCULAR HEMOGLOBIN 30 pg (27-31); MEAN CORPUSCULAR HGB CONC 35 g/dl (33.0-37.0); MEAN PLATELET VOLUME 9.6 fl (7.4-10.4); MONO # 0.5 K/mm3 (0.1-0.6); MONO % 9.9 % (1.7-9.3); PLATELET COUNT 191 K/mm3 (130-400); RED BLOOD COUNT 5.39 M/mm3 (4.20-5.60); REDCELL DISTRIBUTION WIDTH-CV 11.9 % (11.5-14.5)
[2021-04-08 15:43] LABS: ALBUMIN 4.8 gm/dL (3.5-5.0); BILIRUBIN,TOTAL 0.8 mg/dL (0.2-1.2); CALCIUM 9.3 mg/dL (8.4-10.2); CREATININE, serum 0.96 mg/dL (0.72-1.25); TOTAL PROTEIN 6.9 gm/dL (6.2-8.1)
[2021-04-08 16:06] VITALS: BP 108/89; PULSE 79; TEMP 97.7
== END 2021-04-08 17:21 ==
LOC: EUO 14:56
PROVIDERS: Family Medicine
DX: M08.88 Other juvenile arthritis, other specified site (principal)

== ENCOUNTER 2021-06-03 15:00 | Outpatient (CLI) | payer BC ==
[~2021-06-03] VITALS: Ht 175.3 cm; Wt 79.5 kg
[2021-06-03 15:30] LABS: BASO % 0.3 % (0.0-2.0); EOS # 0.1 K/mm3 (0.0-0.7); EOS % 1.4 % (0.0-4.0); GRAN # 5.4 K/mm3 (1.4-6.5); HEMATOCRIT 45.2 % (42.0-52.0); HEMOGLOBIN 15.8 g/dl (13.5-18.0); LYMPH # 0.9 K/mm3 (1.2-3.4); LYMPH % 13.5 % (20.0-51.0); MEAN CELL VOLUME 87 fl (80.0-100.0); MEAN CORPUSCULAR HEMOGLOBIN 30 pg (27-31); MEAN CORPUSCULAR HGB CONC 35 g/dl (33.0-37.0); MEAN PLATELET VOLUME 9.6 fl (7.4-10.4); MONO # 0.5 K/mm3 (0.1-0.6); MONO % 7.5 % (1.7-9.3); PLATELET COUNT 195 K/mm3 (130-400); RED BLOOD COUNT 5.22 M/mm3 (4.20-5.60); REDCELL DISTRIBUTION WIDTH-CV 11.9 % (11.5-14.5)
[2021-06-03 15:53] LABS: ALBUMIN 4.6 gm/dL (3.5-5.0); BILIRUBIN,TOTAL 1.2 mg/dL (0.2-1.2); CALCIUM 9.2 mg/dL (8.4-10.2); CREATININE, serum 1.04 mg/dL (0.72-1.25); POTASSIUM 4.4 mmol/L (3.5-4.5); TOTAL PROTEIN 6.5 gm/dL (6.2-8.1)
[2021-06-03 15:57] VITALS: BP 113/73; PULSE 83; TEMP 99.1
== END 2021-06-03 16:55 ==
LOC: EUO 15:00
PROVIDERS: Family Medicine
DX: M08.20 Juvenile rheumatoid arthritis with systemic onset, unspecified site (principal)

== ENCOUNTER → 2021-07-01 | Outpatient (CLI) | payer BC ==
[~2021-07-01] VITALS: Ht 175.3 cm; Wt 80.1 kg
[2021-07-01 15:23] LABS: BASO % 0.7 % (0.0-2.0); EOS # 0.2 K/mm3 (0.0-0.7); EOS % 3.6 % (0.0-4.0); GRAN # 4.2 K/mm3 (1.4-6.5); HEMATOCRIT 46.9 % (42.0-52.0); HEMOGLOBIN 16.6 g/dl (13.5-18.0); LYMPH # 1.1 K/mm3 (1.2-3.4); LYMPH % 17.8 % (20.0-51.0); MEAN CELL VOLUME 86 fl (80.0-100.0); MEAN CORPUSCULAR HEMOGLOBIN 30 pg (27-31); MEAN CORPUSCULAR HGB CONC 35 g/dl (33.0-37.0); MEAN PLATELET VOLUME 9.7 fl (7.4-10.4); MONO # 0.5 K/mm3 (0.1-0.6); MONO % 8.7 % (1.7-9.3); PLATELET COUNT 192 K/mm3 (130-400); RED BLOOD COUNT 5.47 M/mm3 (4.20-5.60); REDCELL DISTRIBUTION WIDTH-CV 11.8 % (11.5-14.5)
[2021-07-01 15:39] VITALS: BP 108/65; PULSE 77; TEMP 98.7
[2021-07-01 15:41] LABS: ALBUMIN 4.4 gm/dL (3.5-5.0); BILIRUBIN,TOTAL 0.8 mg/dL (0.2-1.2); CALCIUM 8.9 mg/dL (8.4-10.2); CREATININE, serum 0.99 mg/dL (0.72-1.25); POTASSIUM 4.1 mmol/L (3.5-4.5); TOTAL PROTEIN 6.8 gm/dL (6.2-8.1)
== END ==
LOC: EUO 14:54
PROVIDERS: Family Medicine
DX: M08.20 Juvenile rheumatoid arthritis with systemic onset, unspecified site (principal)